=== PATIENT | male | born 1995 | race Caucasian/White ===

== ENCOUNTER 2016-09-13 23:43 | Emergency (ER) | payer BC ==
[2016-09-14] MEDS ORDERED: KETOROLAC TROMETHAMINE INJ/PF 30 MG/1 ML SDV IV ONE (01:09)
[2016-09-14] MEDS ORDERED: NORMAL SALINE 1000 ML 1,000 ML IV ONE (01:09)
[2016-09-14] MEDS ORDERED: ONDANSETRON HCL INJ/PF 4 MG/2 ML SDV IV ONE (01:09)
--- NOTE | 2016-09-14 01:10 | ER Document Report ---
ED GI/ - General Chief Complaint: Flank Pain Stated Complaint: RIGHT SIDE FLANK PAIN Time seen by provider: 01:05 Notes: Patient is a 21-year-old male that comes emergency department for chief complaint of right lower abdominal/groin pain that started yesterday, he denies nausea or vomiting, he states he feels "pressure" when urinating, pain radiates around to his right mid back. Patient denies any injuries, denies any daily medications, denies any surgeries, denies any medical history. TRAVEL OUTSIDE OF THE [place] IN LAST 30 DAYS: No - Related Data Allergies/Adverse Reactions: No Known Allergies Allergy (Verified 08/11/13 20:54) Past Medical History - General Information source: Patient - Social History Smoking Status: Never Smoker Chew tobacco use (# tins/day): No Frequency of alcohol use: None Drug Abuse: None Lives with: Family Family History: Reviewed & Not Pertinent Patient has suicidal ideation: No Patient has homicidal ideation: No - Medical History Medical History: Negative Renal/ Medical History: Denies: Hx Peritoneal Dialysis Surgical Hx: Negative - Immunizations Immunizations up to date: Yes Hx Diphtheria, Pertussis, Tetanus Vaccination: Yes Review of Systems - Review of Systems Constitutional: No symptoms reported EENT: No symptoms reported Cardiovascular: No symptoms reported Respiratory: No symptoms reported Gastrointestinal: See HPI Genitourinary: See HPI Male Genitourinary: No symptoms reported Musculoskeletal: No symptoms reported Skin: No symptoms reported Hematologic/Lymphatic: No symptoms reported Neurological/Psychological: No symptoms reported Physical Exam - Vital signs Vitals: Temp Pulse Resp BP Pulse Ox 98 F 102 H 18 128/77 H 97 09/13/16 23:48 09/13/16 23:48 09/13/16 23:48 09/13/16 23:48 09/13/16 23:48 Interpretation: Normal - General General appearance: Appears well, Alert In distress: None - HEENT Head: Normocephalic, Atraumatic Eyes: Normal Pupils: PERRL - Respiratory Respiratory status: No respiratory distress Chest status: Nontender Breath sounds: Normal Chest palpation: Normal - Cardiovascular Rhythm: Regular Heart sounds: Normal auscultation Murmur: No - Abdominal Inspection: Normal Distension: No distension Bowel sounds: Normal Tenderness: Tender - Patient is tender in the right lower quadrant with some wincing but no guarding, rest of the abdomen is soft and benign Organomegaly: No organomegaly - Genitourinary Inspection: Normal. No: Blood at meatus, Penile discharge Tenderness: Nontender. No: Testicle tender, Epididymis tender Cremasteric reflex: Normal Scrotum: Normal. No: Swelling, Redness, Hot to touch - Back Back: Normal, Nontender - Extremities General upper extremity: Normal inspection, Nontender, Normal color, Normal ROM , Normal temperature General lower extremity: Normal inspection, Nontender, Normal color, Normal ROM , Normal temperature, Normal weight bearing. No: Nelli's sign - Neurological Neuro grossly intact: Yes Cognition: Normal Orientation: AAOx4 [place] Coma Scale Eye Opening: Spontaneous [place] Coma Scale Verbal: Oriented [place] Coma Scale Motor: Obeys Commands [place] Coma Scale Total: 15 Speech: Normal Motor strength normal: LUE, RUE, LLE, RLE Sensory: Normal - Psychological Associated symptoms: Normal affect, Normal mood - Skin Skin Temperature: Warm Skin Moisture: Dry Skin Color: Normal Course - Re-evaluation Re-evalutation: CBC shows mild leukocytosis at 13.1, chemistry and urine are both unremarkable. Patient continues to have right lower quadrant tenderness on examination. As a result CAT scan performed. Discussed with Dr. Pina per [facility] guidelines. Patient's pain resolved after Toradol and Zofran. Patient given IV fluids. Showing no acute abnormality, appendix normal, no ureterolithiasis, does show enlarged lymph nodes in the right lower quadrant. I do suspect this is the source of patient's pain, I did discuss return precautions, after discussion patient will be given a dose of Decadron for his symptoms, recommended to take ibuprofen for pain, patient states he will return for any concerning or worsening symptoms. - Vital Signs Vital signs: Temp Pulse Resp BP Pulse Ox 97.6 F 74 16 134/76 H 98 09/14/16 06:51 09/14/16 06:51 09/14/16 06:51 09/14/16 06:51 09/14/16 06:51 - Laboratory Result Diagrams: 09/14/16 01:35 09/14/16 01:35 Laboratory results interpreted by me: 09/14/16 09/14/16 01:35 01:35 WBC 13.1 H Absolute Neutrophils 9.2 H BUN 23 H Discharge - Discharge Clinical Impression: Lower abdominal pain, Adenopathy Condition: Stable Disposition: HOME, SELF-CARE Additional Instructions: On imaging the appendix is normal, workup shows no abnormality except for swollen lymph nodes in the right lower abdominal/pelvic area. You have been treated for this, if needed take ibuprofen for pain, and this should resolve. Follow-up with primary care. Return to the emergency department for any concerning or worsening symptoms. Forms: Return to Work, Elevated Blood Pressure
[2016-09-14 01:50] LABS: ABSOLUTE EOSINOPHILS # (AUTO) 0.3 10^3/uL (0.0-0.6); ABSOLUTE LYMPHOCYTES (AUTO) 2.4 10^3/uL (0.5-4.7); ABSOLUTE MONOCYTES (AUTO) 1.2 10^3/uL (0.1-1.4); ABSOLUTE NEUT (AUTO) 9.2 10^3/uL (1.7-8.2); BASOPHILS % (AUTO) 0.3 % (0-2); HEMATOCRIT 41.1 % (37.9-51.0); HEMOGLOBIN 14.1 g/dL (13.5-17.0); HGB HCT DIFFERENCE 1.2; LYMPHOCYTES % (AUTO) 18.2 % (13-45); MEAN CORPUSCULAR HEMOGLOBIN 29.8 pg (27.0-33.4); MEAN CORPUSCULAR HGB CONC 34.4 g/dL (32.0-36.0); MEAN CORPUSCULAR VOLUME 87 fl (80-97); MONOCYTES % (AUTO) 9.5 % (3-13); RED BLOOD COUNT 4.74 10^6/uL (4.35-5.55); RED CELL DISTRIBUTION WIDTH 12.4 % (11.5-14.0); WHITE BLOOD COUNT 13.1 10^3/uL (4.0-10.5)
[2016-09-14 02:07] LABS: ALANINE AMINOTRANSFERASE 39 U/L (21-72); ALBUMIN 4.4 g/dL (3.5-5.0); ALKALINE PHOSPHATASE 52 U/L (38-126); ANION GAP 12 (5-19); ASPARTATE AMINO TRANSFERASE 28 U/L (17-59); BILIRUBIN,TOTAL 0.9 mg/dL (0.2-1.3); BLOOD UREA NITROGEN 23 mg/dL (7-20); CALCIUM 9.7 mg/dL (8.4-10.2); CARBON DIOXIDE 28 mmol/L (22-30); CHLORIDE 101 mmol/L (98-107); CREATININE RESULT 1.25 mg/dL (0.52-1.25); GLUCOSE 76 mg/dL (75-110); POTASSIUM 4.2 mmol/L (3.6-5.0); SODIUM 140.6 mmol/L (137-145); TOTAL PROTEIN 7.3 g/dL (6.3-8.2)
[2016-09-14 02:48] LABS: APPEARANCE,URINE CLEAR; BILIRUBIN,URINE NEGATIVE (NEGATIVE); GLUCOSE, URINE NEGATIVE (NEGATIVE); KETONES,URINE NEGATIVE (NEGATIVE); LEUKOCYTE ESTERASE,URINE NEGATIVE (NEGATIVE); NITRITE,URINE NEGATIVE (NEGATIVE); PROTEIN,URINE NEGATIVE (NEGATIVE); URINE SPECIFIC GRAVITY 1.024; UROBILINOGEN,URINE NEGATIVE mg/dL (<2.0)
[2016-09-14] MEDS ORDERED: DEXAMETHASONE SOD PHOS INJ 10 MG/1 ML VIAL IV ONE (06:47)
[2016-09-14 06:52] VITALS: BP 134/76
== END 2016-09-14 06:55 | disposition home or self-care (01) ==
LOC: ER 23:43
DX: R10.30 Lower abdominal pain, unspecified (principal); R59.9 Enlarged lymph nodes, unspecified; M54.89 Other dorsalgia
CPT/HCPCS: 99284; 96374; 96375; 36415; 85025; 80053; 81001; 74177; J1885; J2405; J1100